=== PATIENT | male | born 1995 | race African-American/Black ===

== ENCOUNTER 2018-12-13 00:18 | Emergency (ER) | payer SELFPAY ==
[~2018-12-13] VITALS: Ht 182.9 cm; Wt 63.5 kg
[2018-12-13 00:29] VITALS: BP 113/68
--- NOTE | 2018-12-13 00:29 | NUR ---
ED Nurse Note: Walk-in patient presents with complaints of decreased hearing in the right ear x 2 days, acute onset.
--- NOTE | 2018-12-13 00:58 | Emergency Room Report ---
History of Present Illness General Chief Complaint: Earache Source: Patient Present Illness HPI Disclaimer: Please note that this report is being documented using [employer] technology. This can lead to erroneous entry secondary to incorrect interpretation by the dictating instrument. HPI: 23-year-old otherwise healthy male presents for evaluation of decreased auditory acuity in the right ear and a feeling of fullness. Symptoms began 3 days ago while on a trip to [facility]. On the drive over he felt fullness in the right ear and a sensation that he could not pop his ears. He noted muffled hearing on that side but denied tinnitus, vertiginous symptoms or complete loss of hearing. No history of ear infections, no recent trauma. Otherwise well. He did note nasal congestion and a sore throat at the same time which have now resolved. Denies any cough, vomiting, fevers. Has not taken any medication. PMH: Denies PSH: Denies Allergies: Denies Social Hx: Occasional tobacco use, occasional THC use Allergies: Coded Allergies: No Known Allergies (Unverified , 12/13/18) Nursing Documentation-PMH Past Medical History: No Stated History Review of Systems All Other Systems: negative except mentioned in HPI Physical Exam Vital Signs Date Time Temp Pulse Resp B/P (MAP) Pulse Ox O2 Delivery O2 Flow Rate FiO2 12/13/18 00:23 98.1 64 16 113/68 (83) 98 Room Air General: Awake and alert, no acute distress HEENT: NC/AT. EOMI. PERRLA. Anicteric sclera. Tympanic membranes are hyperemic but nonbulging, clear landmarks, no evidence of effusion. External auditory canals are nonedematous, no inflammation. Not obstructed. Uvula is midline, pharyngeal erythema without purulent drainage. Tonsils are 1+ nonobstructing, nonedematous, no drainage. Neck: Supple, trachea midline Cardiovascular: RRR. S1 and S2 normal. No murmur appreciated Resp: Normal work of breathing. No cough, wheezing or crackles appreciated Skin: Intact. No abrasions, laceration or rash over the exposed skin MSK: Normal tone and bulk. Moving all extremities. No obvious deformity. Neuro: Awake and alert. Mentating appropriately. Medical Decision Making Diagnostic Impression: Primary Impression: Ear fullness Qualified Codes: H93.8X1 - Other specified disorders of right ear ER Course 23-year-old male presents for evaluation of fullness in the right ear and decreased hearing acuity. This may be a viral syndrome given the hyperemic appearance of both tympanic membranes and the pharyngeal erythema along with 4 days of URI symptoms that appear to be improving. Will offer conservative management at this time and the patient can follow-up as an outpatient with his PMD and referral to ENT as needed. Discussed reasons to return to the emergency department. He understands and agrees with this treatment plan. Last Vital Signs Date Time Temp Pulse Resp B/P (MAP) Pulse Ox O2 Delivery O2 Flow Rate FiO2 12/13/18 00:29 98.1 78 16 113/68 98 Room Air Disposition: HOME, SELF-CARE Condition: Stable Referrals: [facility] Liane Newton. [facility] Patient Instructions: Earache Additional Instructions: Your evaluated in the emergency department today for fullness in the right ear and decreased hearing. This may be related to a viral syndrome given the recent sore throat and cold symptoms you been experiencing however you should be referred to saw offbearer if the symptoms do not improve in the next few days. Please follow-up with 1 of the clinics listed here in your discharge paperwork and schedule an appointment for reevaluation and referral to ear nose and throat. Return to the emergency department any new or worsening symptoms. Rajan Reyes MD Dec 13, 2018 00:58
[2018-12-13 01:00] VITALS: BP 113/68
--- NOTE | 2018-12-13 01:00 | NUR ---
ER Nurse Note: Pt seen, treated, medically cleared for discharge by ERMD. Discharge instuctions given with repeat verbalization by pt. Emphasized to follow up with primay care provider. All orders completed per ERMD orders. Pt a&ox4, VSS, no signs of distress. ID band removed. All questions answered per pt's questions. Pt left with all belongings, left with own transportation.
== END 2018-12-13 01:00 | disposition home or self-care (01) ==
LOC: EMR 00:55
DX: H93.8X1 Other specified disorders of right ear (principal)
CPT/HCPCS: 99281